=== PATIENT | male | born 1975 | race Caucasian/White ===

== ENCOUNTER 2017-09-11 07:38 | Emergency (ER) | payer BC ==
[2017-09-11] MEDS ORDERED: KETOROLAC 30 MG/ML VIAL IVP ONE (07:52)
[2017-09-11 07:59] LABS: BASO % 0.7 % (0-6); EOS % 1.5 % (0-6); HEMATOCRIT 45.5 % (42.0-52.0); HEMOGLOBIN 15.5 gm/dl (14.0-18.0); LYMPH % 37.1 % (16-45); MEAN CELL VOLUME 83.3 fl (81-97); MEAN CORPUSCULAR HEMOGLOBIN 28.4 pg (27-33); MEAN CORPUSCULAR HGB CONC 34.1 g/dl (32-36); MEAN PLATELET VOLUME 10.6 fl (7.4-10.4); MONO % 7.7 % (0-9); PLATELET COUNT 289 K/uL (130-400); RED BLOOD COUNT 5.46 M/uL (4.40-5.70); RED CELL DISTRIBUTION WIDTH 12.5 % (11.5-14.5); WHITE BLOOD COUNT W/O DIFF 7.6 K/uL (4.2-12.2)
--- NOTE | 2017-09-11 07:59 | Emergency Department Record ---
History of Present Illness - General Chief Complaint: Chest Pain Stated Complaint: CHEST PAIN Time Seen by Provider: 09/11/17 07:45 Source: Patient Mode of Arrival: Ambulatory Limitations: No limitations - History of Present Illness Initial Comments: The patient is here due to a 14 hour hx of L chest discomfort. He describes it as a dull pain in the L upper chest. The pain is intermittent and lasts maybe a minute at a time and then is gone for maybe 20 minutes. He did have some RAÚL last evening while walking but none since and he is NOT having SOB with the pain. There is no radiation of the pain and no nausea, sweating or lightheadness. The patient denies any hx of similar issues and has no cardiac risk factors. The patient states the CP and SOB did get slightly worse with walking up steps last evening at a concert. MD Complaint: Chest pain Onset/Timin -: Hour(s) Pain Location: Left chest Pain Radiation: LUE Severity: Mild Quality: Aching, Dull Consistency: Constant Improves With: Nothing Worsens With: Nothing Treatments Prior to Arrival: None - Related Data Home Medications Medication Instructions Recorded Confirmed Last Taken No Home Med [NO HOME MEDS] 09/11/17 09/11/17 Unknown Allergies Allergy/AdvReac Type Severity Reaction Status Date / Time No Known Drug Allergies Allergy Verified 09/11/17 07:43 Travel Screening - Travel/Exposure Within Last 30 Days Have you traveled within the last 30 days?: Yes Location Detail:: [place] - Travel Symptoms Symptom Screening: None Review of Systems Constitutional: Denies: Chills, Fever Eyes: Denies: Eye discharge ENT: Denies: Congestion Respiratory: Denies: Cough, Dyspnea Past Medical History - SOCIAL HISTORY Smoking Status: Never smoker Alcohol Use: None Drug Use: None - RESPIRATORY Hx Respiratory Disorders: No - CARDIOVASCULAR Hx Cardio Disorders: No - NEURO Hx Neuro Disorders: No - GI Hx GI Disorders: No - Hx Genitourinary Disorders: No - ENDOCRINE Hx Endocrine Disorders: No - MUSCULOSKELETAL Hx Musculoskeletal Disorders: No - PSYCH Hx Psych Problems: No - HEMATOLOGY/ONCOLOGY Hx Hematology/Oncology Disorders: No Family Medical History Any Significant Family History?: Yes Hx Diabetes: Mother Physical Exam - General General Appearance: Alert, Oriented x3, Cooperative, No acute distress - Head Head exam: Atraumatic, Normocephalic - Eye Eye exam: Normal appearance, PERRL - Neck Neck exam: Normal inspection, Full ROM. negative: Tenderness - Respiratory Respiratory exam: Normal lung sounds bilaterally, Chest wall tenderness (The pain is 100% reproducible with palpation to the L upper lateral chest area. ). negative: Respiratory distress - Cardiovascular Cardiovascular Exam: Regular rate, Normal rhythm, Normal heart sounds - GI/Abdominal GI/Abdominal exam: Soft, Normal bowel sounds. negative: Tenderness - Extremities Extremities exam: Normal inspection, Full ROM, Normal capillary refill. negative: Tenderness - Back Image of Body Front/Back: 1 - Area of pain and 100% reproducible tenderness. - Neurological Neurological exam: Alert, Normal gait, Oriented X3. negative: Abnormal gait, Motor sensory deficit - Psychiatric Psychiatric exam: negative: Anxious - Skin Skin exam: negative: Rash Course Vital Signs 09/11/17 07:39 Temperature 98.5 F Pulse Rate 87 Respiratory 20 Rate Blood Pressure 151/104 Pulse Ox 98 - Reevaluation(s) Reevaluation #1: The patient's discomfort did resolve completely with Toradol. He presently feels well and has no pain, discomfort, SOB or any dyspnea. Due to the fact the pain was completely reproducible and his EKG, CXR, and lab work are all normal, along with his lack of risk factors leads me to believe the pain is probably not cardiac. At this time the patient's blood pressure is mildly elevated and he is to see a PCP for recheck. Also due to the fact the pain was worse with exertion last evening with going up the stairs I still feel the prudent course of action would be to keep him here at [facility] in an observational status and have his heart evaluated further with an echo and stress test. I did discuss this with the patient but he is reluctant to do that. He would like to pursue those tests as an outpatient. He understands the risks of leaving which are that he could have an VA, stroke, become disabled and and he accepts the risks. He is to return to the ER at ANY time if the pain returns or for any further issues. 09/11/17 08:42 09/11/17 08:49 Medical Decision Making - Data Complexity MDM Data: Labs Ordered and/or Reviewed, X-Ray Ordered and/or Reviewed, EKG Ordered and/or Reviewed - Lab Data Result diagrams: 09/11/17 07:40 09/11/17 07:40 - EKG Data -: EKG Interpreted by Me EKG: No Acute Changes, Normal EKG - Radiology Data Radiology results: Report reviewed (CXR: Neg.) Disposition Disposition: Discharge Clinical Impression: Chest wall pain Disposition: Home, Self-Care Condition: (2) Stable Instructions: Chest Wall Pain (ED) Additional Instructions: Please use Motrin or Advil for pain. Please see a family doctor for recheck later this week of next week. Return to the ER for any worsening pain, RAÚL, sweating or shortness of breath. Forms: Patient Portal Access Time of Disposition: 08:55 Quality - Quality Measures Quality Measures: N/A - Blood Pressure Screening View Details: Yes Does Patient Have Any of the Following: No Blood Pressure Classification: Hypertensive Reading Systolic Measurement: 151 Diastolic Measurement: 104 Screening for High Blood Pressure: < First Hypertensive BP, F/U Documented > [ [id number]] First Hypertensive Follow-up Interventions: Referral to alternative/primary care provider.
[2017-09-11 08:11] LABS: BLOOD UREA NITROGEN 19 mg/dL (6-20); CREATININE 1.1 mg/dL (0.7-1.2); EST GLOMERULAR FILTRATION RATE > 60 mL/min
[2017-09-11 08:12] LABS: TOTAL PROTEIN 7.8 g/dL (6.6-8.7)
[2017-09-11 08:14] LABS: GLUCOSE,RANDOM 143 mg/dL (74-109)
[2017-09-11 08:17] LABS: ALB/GLOB RATIO 1.4 (1.1-1.8); ALBUMIN 4.5 g/dL (4.0-5.0); ALKALINE PHOSPHATASE 64 U/L (40-129); ALT/SGPT 39 U/L (<41); AST/SGOT 20 U/L (10.0-50.0); CREATINE PHOSPHOKINASE 132 U/L (39-308)
[2017-09-11 08:19] LABS: CKMB 1.9 ng/mL (<6.73)
--- NOTE | 2017-09-11 18:45 | RADIOLOGY REPORT ---
EXAM: CHEST 2 VIEWS HISTORY: DIFFICULTY BREATHING. TECHNIQUE: Frontal and lateral views of the chest were performed. FINDINGS: Heart size is normal. Lung benson are clear. No infiltrate or pleural effusion. The osseous structures are normal. IMPRESSION: NEGATIVE CHEST EXAMINATION. JOB NUMBER: [id number] MTDD
== END 2017-09-11 09:05 | disposition home or self-care (01) ==
LOC: ER 07:38
DX: R07.89 Other chest pain (principal); R06.00 Dyspnea, unspecified
CPT/HCPCS: 99284 ×2; 96374; 82550; 85025; 82553; 80053; 84484; 71046; 93005; 93010; J1885